=== PATIENT | female | born 1950 | race Caucasian/White ===

== ENCOUNTER 2017-01-06 13:55 | Emergency (ER) | payer OTHER ==
[~2017-01-06] VITALS: Ht 162.6 cm; Wt 66.0 kg
[~2017-01-06 13:55] MED LIST: ASPI325T; B COTAB3; CALC600T34; DICL75 PO; HYDR12.56 PO; SYNT25TA; TAB-TAB; TOPR25TA2; TRAM50 PO; VITA400C70
[2017-01-06 13:57] VITALS: BP 182/80; PULSE 84; RESP 20; TEMP 97.9; O2SAT 98
[2017-01-06] MEDS ORDERED: SYNT88TA PO (14:20)
[2017-01-06] MEDS ORDERED: HYDR12.57 PO (14:20)
[2017-01-06] MEDS ORDERED: CALC1TAB87 PO (14:20)
[2017-01-06] MEDS ORDERED: METO25TA6 PO (14:20)
[2017-01-06] MEDS ORDERED: ASPI325T PO (14:20)
[2017-01-06] MEDS ORDERED: VITACAP7 PO (14:20)
[2017-01-06] MEDS ORDERED: VITA200C3 PO (14:20)
[2017-01-06] MEDS ORDERED: ACETAMINOPHEN/HYDROcodone 325 MG/5 MG TAB PO ONE (14:30)
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
[2017-01-06 16:15] VITALS: BP 137/89; PULSE 78; RESP 16; O2SAT 97
[2017-01-06] MEDS ORDERED: IBUPROFEN 800 MG TAB PO ONE (16:45)
[2017-01-06] MEDS ORDERED: METHOCARBAMOL 500 MG TAB PO ONE (16:45)
--- NOTE | 2017-01-06 16:57 | RADRPT ---
EXAM DATE/TIME: 01/06/2017 16:23 [facility] COMPARISON: No previous studies available for comparison. INDICATIONS : Trauma. Fell yesterday. Low back pain. RADIATION DOSE: 35.86 CTDIvol (mGy) MEDICAL HISTORY : Hypothyroidism. SURGICAL HISTORY : Appendectomy. Lumbar laminectomy. ENCOUNTER: Initial ACUITY: 1 day PAIN SCALE: 7/10 LOCATION: Low back. TECHNIQUE: Volumetric scanning of the lumbar spine was performed. Multiplanar reconstructions in the sagittal, coronal and oblique axial planes were performed. Using automated exposure control and adjustment of the mA and/or kV according to patient size, radiation dose was kept as low as reasonably achievable t o obtain optimal diagnostic quality images. FINDINGS: Examination is abnormal. There is moderate compression deformity of the L1 superior endplate in a gillian r burst configuration with retropulsed fragment resulting effacing the thecal sac and reducing the ce ntral canal to approximately 10 mm. In fracture does not involve the posterior elements. Osseous stru ctures appear diffusely osteopenic. Remaining vertebral body heights are intact. There is multilevel degenerative spondylosis most prominently at L3-4, L4-5, and L5-S1. Diffuse disc bulge at L3-4 and L4 -5 with vacuum disc phenomenon at L4-5 with moderate facet arthropathy resulting in moderate central canal stenosis with central canal measuring 8 mm. At L5-S1 there is vacuum disc phenomenon and endpla te sclerosis with posterior disc osteophyte complex resulting in moderate to severe left and moderate right caudal neural foraminal narrowing. Evaluation of the paraspinal soft tissues demonstrate moderate atherosclerotic aspirations of the inf rarenal aorta. Precise portions of the kidney are grossly unremarkable. No significant retroperitonea l adenopathy. CONCLUSION: 1. Moderate nearly burst type compression fracture of the L1 superior endplate resulting in approxima tely 50% vertebral body height loss. There is retropulsed fragment resulting in moderate spinal canal stenosis. Patient may benefit from cement augmentation if there are no radicular symptoms. 2. Bones appear diffusely osteopenic. Clinical correlation with bone density exam is recommended. 3. Multilevel degenerative spondylosis of the lower lumbar spine most prominently at L3-S1. Bruce Vega MD on January 06, 2017 at 16:47 Board Certified Radiologist. This report was verified electronically.
[2017-01-06] MEDS ORDERED: HYDR-3583 PO (18:02)
[2017-01-06] MEDS ORDERED: HYDR2TAB PO (18:02)
--- NOTE | 2017-01-06 18:17 | PD.CONS ---
History of Present Illness Service Neurosurgery Consult Requested By ED Reason for Consult L1 Fracture Primary Care Physician Oswaldo Elam DO Diagnoses: History of Present Illness 66 YO Fe fell backwards on SUP 2 days ago, immediate onset severe LBP, no radiation. Review of Systems Constitutional: DENIES: Fever, Dizziness Eyes: DENIES: Blurred vision Ears, nose, mouth, throat: DENIES: Vertigo Cardiovascular: COMPLAINS OF: Palpitations, DENIES: Chest pain Gastrointestinal: DENIES: Abdominal pain, Nausea, Vomiting Musculoskeletal: COMPLAINS OF: Muscle aches, Back pain, DENIES: Joint pain, Neck pain Hematologic/lymphatic: DENIES: Bruising Neurologic: COMPLAINS OF: Abnormal gait, DENIES: Headache Psychiatric: DENIES: Confusion Past Family Social History Allergies: Coded Allergies: No Known Allergies (Verified , 01/06/17) Past Medical History PVCs HTN Past Surgical History Lumbar Laminectomy 2000 Appendectomy Tonsillectomy Reported Medications Reported Meds & Active Scripts Active Hydromorphone (Hydromorphone HCl) 2 Mg Tab 2 Mg PO Q6H PRN Hydrocodone-Acetaminophen 10-325 mg Tab 1 Tab PO Q6H PRN Reported Vitamin E 200 Unit Cap 400 Units PO DAILY Hydrochlorothiazide 12.5 Mg Cap 12.5 Mg PO DAILY Metoprolol Succinate ER 24 HR (Metoprolol Succinate) 25 Mg Tab 25 Mg PO DAILY Synthroid (Levothyroxine Sodium) 88 Mcg Tab 88 Mcg PO DAILY Calcium 600 with Vitamin D (Calcium Carbonate-Cholecalciferol) 600-400 mg-Unit Tab 1 Tab PO DAILY Calcium 600 with Vitamin D (Calcium Carbonate-Cholecalciferol) 600-400 mg-Unit Tab 1 Tab PO DAILY B Complex (B-Complex Vitamins) 1 Cap 1 Cap PO DAILY Aspirin 325 Mg Tab 325 Mg PO DAILY Social History No smoking or Etoh Physical Exam Vital Signs Vital Signs Date Time Temp Pulse Resp B/P Pulse Ox O2 Delivery O2 Flow Rate FiO2 01/06/17 16:15 78 16 137/89 97 Room Air 01/06/17 15:29 16 01/06/17 13:57 97.9 84 20 182/80 98 Room Air Physical Exam GENERAL: This is a well-nourished, well-developed patient, in no apparent distress. SKIN: No rashes, ecchymoses or lesions. Cool and dry. HEAD: Atraumatic. Normocephalic. No temporal or scalp tenderness. EYES: No scleral icterus. ENT: No facial edema o ecchymosis NECK: Trachea midline. No JVD or lymphadenopathy. Supple, nontender, no meningeal signs. MUSCULOSKELETAL: Extremities without clubbing, cyanosis, or edema. No joint tenderness, effusion, or edema noted. No calf tenderness. Moderate lower lumbar diffuse tenderness NEUROLOGICAL: Awake and alert. Sensation is intact to light touch throughout the upper extremities. Strength is normal in all major flexion and extension groups and hand intrinsic musculature in the right and left upper extremity Eunice's response is absent on the right and left. Sensation is intact to light touch in the lower extremities. Strength is normal in major flexion and extension groups inversion/eversion of the foot in the right and left lower extremity. There is no ankle clonus. Plantar response is flexor on the right and left. Straight leg raise is negative to 90 degrees on the right and left. The patient gets in and out of chair without significant difficulty. Her gait is normal. Imaging Lumbar CT images reviewed less then 50 percent canal compromise Lumbar Spine CT 01/06/17 1426 Signed Impressions: Service Date/Time: Friday, January 06, 2017 16:23 - CONCLUSION: 1. Moderate nearly burst type compression fracture of the L1 superior endplate resulting in approximately 50%% vertebral body height loss. There is retropulsed fragment resulting in moderate spinal canal stenosis. Patient may benefit from cement augmentation if there are no radicular symptoms. 2. Bones appear diffusely osteopenic. Clinical correlation with bone density exam is recommended. 3. Multilevel degenerative spondylosis of the lower lumbar spine most prominently at L3-S1. Bruce Vega MD Assessment and Plan Assessment and Plan Impression: L1 compression fracture.less than 50 percent loss of height and canal compromise. No neurologic deficit Plan Discussed options conservative treatment versus kyphoplasty with patient She will continue conservative treatment with TLSO and medications with activity precautions F/U OV in 10-14 days with lateral L-spine x-ray Leodan Cherry MD Jan 06, 2017 18:17
== END 2017-01-06 19:08 | disposition home or self-care (01) ==
LOC: NEPD 13:55
DX: M48.56XA Collapsed vertebra, not elsewhere classified, lumbar region, initial encounter for fracture (principal); I49.3 Ventricular premature depolarization; E03.9 Hypothyroidism, unspecified; I10 Essential (primary) hypertension; M85.80 Other specified disorders of bone density and structure, unspecified site; Y93.16 Activity, rowing, canoeing, kayaking, rafting and tubing; W18.39XA Other fall on same level, initial encounter; Y92.832 Beach as the place of occurrence of the external cause
CPT/HCPCS: 72131; 99284; L0200; L0484

== ENCOUNTER → 2017-02-28 | Outpatient (CLI) | payer MEDICARE, OTHER ==
[~2017-02-28] MED LIST changes: -ASPI325T; +ASPI325T PO; -B COTAB3; +CALC1TAB87 PO; -CALC600T34; -DICL75 PO; +HYDR-3583 PO; -HYDR12.56 PO; +HYDR12.57 PO; +LEVO88TA2 PO; +METO25TA6 PO; -SYNT25TA; +SYNT88TA PO; -TAB-TAB; -TOPR25TA2; -TRAM50 PO; +VITA200C3 PO; -VITA400C70; +VITACAP7 PO
[2017-02-28 11:59] LABS: HEMATOCRIT 39.2 % (35.0-46.0); MEAN CORPUSCULAR HEMOGLOBIN 35.6 PG (27.0-34.0); MEAN CORPUSCULAR HGB CONC 34.6 % (32.0-36.0); PLATELET COUNT 277 TH/MM3 (150-450); RED CELL DISTRIBUTION WIDTH 13.8 % (11.6-17.2); REVIEW FLAG FINAL; WHITE BLOOD COUNT 5.5 TH/MM3 (4.0-11.0)
[2017-02-28 12:07] LABS: INTERNATIONAL NORMALIZED RATIO 0.9 RATIO; PROTHROMBIN TIME - PATIENT 10.2 SEC (9.8-11.6)
[2017-02-28 12:27] LABS: BICARBONATE 29.7 MEQ/L (21.0-32.0); POTASSIUM 3.6 MEQ/L (3.5-5.1)
--- NOTE | 2017-02-28 12:39 | RADRPT ---
EXAM DATE/TIME: 02/28/2017 11:12 [facility] COMPARISON: No previous studies available for comparison. INDICATIONS : Pre-op L1 Kyphoplasty. Evaluate for Pneumonia, Pneumothorax, and Communicable Diseases. MEDICAL HISTORY : Hypothyroidism. SURGICAL HISTORY : Appendectomy. Lumbar laminectomy. ENCOUNTER: Initial ACUITY: 1 day PAIN SCORE: 0/10 LOCATION: Bilateral chest FINDINGS: PA and lateral views of the chest demonstrate the lungs to be symmetrically aerated without evidence of mass, infiltrate or effusion. The cardiomediastinal contours are unremarkable. Osseous structure s are intact. CONCLUSION: No acute disease. Floyd Gallardo MD on February 28, 2017 at 12:37 Board Certified Radiologist. This report was verified electronically.
--- NOTE | 2017-03-01 08:06 | EKG ---
Date Performed: 02/28/2017 Time Performed: 10:31:41 PTAGE: 66 years EKG: Sinus rhythm LOW QRS VOLTAGE IN PRECORDIAL LEADS BORDERLINE ECG PREVIOUS TRACING : 07/21/2002 12.51 DOCTOR: Adin Sims Interpretating Date/Time 03/01/2017 08:04:11
== END ==
LOC: CPRE 10:07
PROVIDERS: ATTEND Neurological Surgery
DX: Z01.812 Encounter for preprocedural laboratory examination (principal); Z01.810 Encounter for preprocedural cardiovascular examination; Z01.811 Encounter for preprocedural respiratory examination; Z79.01 Long term (current) use of anticoagulants; E03.9 Hypothyroidism, unspecified
CPT/HCPCS: 36415; 71020; 80048; 85027; 85610; 93005

== ENCOUNTER → 2017-03-01 | Day surgery (SDC) | payer OTHER, MEDICARE ==
[~2017-03-01] VITALS: Ht 162.6 cm; Wt 65.3 kg
[~2017-03-01] MED LIST changes: +*morphine SULFATE 8 MG/ML PERIprocedure ONLY ONE; +ACETAMINOPHEN 1000 MG/100 ML VIAL IV ONE; +ACETAMINOPHEN/HYDROcodone 325 MG/10 MG TAB PO PRN; +ACETAMINOPHEN/HYDROcodone 325 MG/5 MG TAB PO PRN; +CHLORHEXIDINE GLUCONATE 2 % 1 PACK (2 CLOTHS) TOPICAL PRN; +DEXAMETHASONE SOD PHOS 4 MG/ML VIAL ONE; +DO NOT ADM ANY ANTICOAGULANT DRUGS PRN; +FAMOTIDINE 20 MG/2 ML VIAL ONE; +INSULIN HUMAN REGULAR 1,000 UNITS/10 ML VIAL SQ PRN; +IOHEXOL 350 MG/ML 50 ML BTL (for RAD DIAG) ONE; +LACTATED RINGER'S 1000 ML INJ 1,000 ML IV ONE; +LACTATED RINGER'S 1000 ML INJ 1,000 ML IV SCH; +LACTATED RINGER'S 1000 ML IV PRN; -LEVO88TA2 PO; +LIDOCAINE 1.5%/EPINEPHrine 1:200,000 PF SOLN 30 ML AMP INFIL ONE; +METOPROLOL TARTRATE 25 MG TAB PO PRN; +MIDAZOLAM HCL 2 MG/2 ML VIAL ONE; +MORPHINE SULFATE 4 MG/ML INJ IV PRN; +NALOXONE HCL 0.4 MG/ML AMP IV PRN; +ONDANSETRON HCL 4 MG/2 ML VIAL IV PUSH ONE; +PHENYLEPH/NS 1000 MCG/10 ML SYR IV ONE; +POVIDONE IODINE 5% (ANTISEPSIS KIT) 4 APPLICATIONS EACH NARE PRN; +PROPOFOL 200 MG/20 ML AMP IV ONE; +SODIUM CHLORID 0.9% 500 ML IV PRN; +SODIUM CHLORIDE 0.9% FLUSH 5 ML FLUSH IVF PRN; +SODIUM CHLORIDE 0.9% FLUSH 5 ML FLUSH IVF SCH; +ceFAZolin 2 GM PREMIX 50 ML IV SCH
[2017-03-01 07:39] VITALS: BP 144/70; PULSE 70; RESP 20; TEMP 99.4; O2SAT 96
--- NOTE | 2017-03-01 11:48 | PD.OP ---
Operative Report Date of Surgery: Mar 01, 2017 Preoperative Diagnosis: (1) Compression fracture of L1 lumbar vertebra L1 compression fracture Postoperative Diagnosis: L1 compression fracture Procedure: L1 kyphoplasty with bilateral balloon placement Use of intraoperative biplanar C-arm imaging for kyphoplasty balloon and cement placement Anesthesia: Gen. Surgeon: Leodan Cherry Line Person(s): None Operation and Findings: Procedure in detail: Patient was brought him to the operating room and general endotracheal anesthesia induced without difficulty. Lines were established per anesthesia. TERE hose and sequential compression devices were in place The patient was placed in prone position on the [facility] table with the side bolsters and all extremities appropriately padded The thoracic and lumbar regions were prepped and draped in a sterile fashion Appropriate timeout procedure was performed without personal present and in agreement AP and lateral C-arm images were used throughout the procedure to determine the kyphoplasty needle placement and to monitor the balloon dilation and cement injection. The procedure was performed at the L1 level. Using the AP and lateral C-arm imaging and preoperative imaging studies to determine the entry point and trajectory, the kyphoplasty needle was advanced on each side through a small skin incision infiltrated with 1% Xylocaine. The needle was docked at the superior lateral quadrant of the bilateral L1 pedicles and advanced into the vertebral body taking care not to traverse the medial aspect of the pedicle on AP imaging until the tip of the needle was approximately 30% into the vertebral body on lateral imaging. The balloons were then inflated with C-arm monitoring. The cement was mixed and allowed to harden to sufficient consistency for injection. The kyphoplasty balloons were deflated and removed and the cement was injected through the needle cannula on each side using C-arm monitoring. Once the appropriate filling of the vertebral body void was accomplished, the needle cannulas were removed, with the inner stylette used to tamp down the cement into the body as the cannula was withdrawn. The cement appeared to harden extremely fast in the cannulas was placed into the vertebral bodies, resulting in some hardening of the cement in the distal aspect of the cannula which could not be fully tamped down prior to removal of the cannula. This resulted in a core of cement projecting up through the soft tissue to the level of the transverse process entry point. However this did not appear to be causing any significant neural or soft tissue impingement. Final AP and lateral C-arm images were obtained to assess the final cement filling into the vertebral body. The small incisions were closed with 4-0 Vicryl, Mastisol and Steri-Strips with a Primapore dressing. The patient was taken to recovery room stable condition. Blood loss was less than 50 cc . No specimen was sent to pathology. Leodan Cherry MD Mar 01, 2017 11:48
--- NOTE | 2017-03-01 12:31 | RADRPT ---
EXAM DATE/TIME: 03/01/2017 10:07 [facility] COMPARISON: CT LUMBAR SPINE W/O CONTRAST, January 06, 2017, 16:23. INDICATIONS : Fracture L1, kyphoplasty MEDICAL HISTORY : None. SURGICAL HISTORY : None. ENCOUNTER: Initial ACUITY: 1 day PAIN SCORE: 0/10 LOCATION: Lumbar spine FINDINGS: Limited 2 projection examination of the thoracolumbar junction region reveals kyphoplasty treatment a t what I believe is L1. There is satisfactory symmetric deposition of cement within the vertebral bod y. Some cement present along the access tract on the right. Alignment is stable with some retropulsio n of bone identified which appears unchanged from CT exam. CONCLUSION: Satisfactory appearance post L1 kyphoplasty Roman Goldstein MD on March 01, 2017 at 12:26 Board Certified Radiologist. This report was verified electronically.
[2017-03-01 12:45] VITALS: BP 137/64; PULSE 70; RESP 20; TEMP 98.2; O2SAT 97
== END | disposition home or self-care (01) ==
LOC: HSDC 06:57
PROVIDERS: ATTEND Neurological Surgery
DX: S32.010A Wedge compression fracture of first lumbar vertebra, initial encounter for closed fracture (principal); W01.198A Fall on same level from slipping, tripping and stumbling with subsequent striking against other object, initial encounter; Z87.891 Personal history of nicotine dependence
CPT/HCPCS: 01936; 22514; 72100; J0131; J0690; J1100; J2250; J2270; J2370; J2405; J3010; J7120; Q9967